=== PATIENT | female | born 1960 | race Caucasian/White ===

== ENCOUNTER 2017-01-17 11:13 | Inpatient (IN) | payer OTHER ==
[~2017-01-17] VITALS: Ht 162.5 cm; Wt 64.4 kg
--- NOTE | ~2017-01-17 | ST ---
[place], [place] EXERCISE STRESS TEST REPORT NAME: RAMIN WANG [facility] #: [id number] UNIT #: [id number] ROOM: 412 DOCTOR: JUSTIN HAMPTON,JENN BIRTHDATE: [birth year] DOS: 01/18/2017 EXERCISE TREADMILL STRESS REFERRING PHYSICIAN: Dr. Mcdaniel. INDICATION: Central chest pain and syncope. The patient underwent standard Jesús protocol stress EKG. The patient's baseline EKG showed sinus bradycardia with no ischemic changes. The patient had baseline heart rate of 49 with a blood pressure of 124/68. The patient's peak heart rate was 152 with a blood pressure of 158/90. The patient achieved a peak heart rate of 152, which represents 92% of maximum predicted. The patient exercised for 8 minutes and 30 seconds. The patient denied any chest pain or symptoms. The patient had no ischemic changes. The patient had no arrhythmias. SUMMARY OF FINDINGS: 1. Negative stress EKG to average workload. 2. Avila treadmill score of 8.3, portending a low risk prognosis. 3. Please see separate dictation for perfusion scan results. JENN ANDERSON MD CM:STRESS:EXERCISE STRESS TEST REPORT [id number] JENN ANDERSON MD
--- NOTE | ~2017-01-17 | WRIGHTHP ---
[place], [place] PATIENT HISTORY AND PHYSICAL EXAM NAME: RAMIN WANG [facility] #: [id number] UNIT #: [id number] ROOM: 412 DOCTOR: LAYA LÓPEZ MD BIRTHDATE: [birth year] DOS: 01/17/2017 HISTORY OF PRESENT ILLNESS: This patient is not known to me. The patient comes in with complaints of palpitations. The patient states that on Saturday, she had an episode of palpitations. Went to a hospital nearby where she worked in [place], [place]. She had an EKG and was told that everything was okay. She came to [place] yesterday to visit her daughter. On a drive here, she started having chest pain and palpitations, so decided to come into the Emergency Room. She denies having any chest pains right now, but she complains of significant headaches and also nausea. Denies having any abdominal pain, any fever or chills, does not have any cough. The patient states that she has had some stresses in her life recently, especially with work and has not been taking her thyroid medication regularly. PAST MEDICAL HISTORY: Significant for hypothyroidism. MEDICATIONS: Synthroid. SOCIAL HISTORY: Smokes about 5-6 cigarettes a day. Denies using any alcohol. She works in [place], [place]. PHYSICAL EXAMINATION: GENERAL: She is awake and alert and oriented. VITAL SIGNS: Graphic trend shows that she is afebrile, blood pressure 132/70, pulse of 86, respirations 14, afebrile. HEAD AND NECK: Within normal limits. LUNGS: Diminished breath sounds. No wheezes, rales or rhonchi heard. CARDIOVASCULAR: Heart is regular. ABDOMEN: Soft, nontender. EXTREMITIES: Without any edema. LABORATORY DATA: An EKG showed sinus rhythm, nonspecific ST-T wave changes, monitor shows sinus rhythm, rule out myocardial infarction protocol. So far have come back negative. ASSESSMENT AND PLAN: 1. The patient presents with chest pain, some minimal shortness of breath and palpitations and workup in the ER, which is negative, ruled out myocardial infarction protocol ordered. So far, all the enzymes have come back negative. Consultation with Cardiology has been obtained and the patient is scheduled to have a stress test this morning along with an echocardiogram. Aspirin will be continued. 2. Headaches, most likely from the nitroglycerin that she is on. We will discontinue the nitroglycerin paste and one dose of Toradol was given for the headache as well as the Zofran. 3. Hypothyroidism. The patient has been skipping medications lately, which could explain her palpitations. TSH, T3, T4 was ordered today. [place], [place] PATIENT HISTORY AND PHYSICAL EXAM NAME: RAMIN WANG UNIT #: [id number] ROOM: [facility] DOCTOR: LAYA LÓPEZ MD BIRTHDATE: [birth year] LAYA LÓPEZ MD CM:HISPHYS:PATIENT HISTORY AND PHYSICAL EXAMINATION [id number] LAYA LÓPEZ MD 01/18/17917 interface
[~2017-01-17 11:13] MED LIST: CIPRO500 MG; FLEXERIL10 MG PO; MOTRIN400 MG PO; MOTRIN800 MG PO; PERCOCET 325 MG1 TA7 PO; PREDNICOT10 MG; PROTONIX40 M1; PROTONIX40 MG; SYNTHROID0.075 MG PO; ZANTAC150 MG PO; ZOFRAN4 MG PO
[2017-01-17] MEDS ORDERED: SYNTHROID,LEV112 MCG PO (11:35)
[2017-01-17 11:48] LABS: BASO % 0.2 % (0.0-1.0); EOS % 0.1 % (1.0-4.0); HEMATOCRIT 42.5 % (37.0-47.0); HEMOGLOBIN 14.2 g/dl (12.0-16.0); LYMPH # 1.5 10*3/uL (1.3-4.4); LYMPH % 17.8 % (27.0-41.0); MEAN CELL VOLUME 90.4 fl (81.0-99.0); MEAN CORPUSCULAR HGB 30.2 pg (27.0-31.0); MEAN CORPUSCULAR HGB CONC 33.4 g/dl (33.0-37.0); MEAN PLATELET VOLUME 10.3 fl (9.6-12.3); MONO # 0.4 10*3/uL (0.1-1.0); MONO % 5.2 % (3.0-9.0); NEUT # 6.2 10*3/uL (2.3-7.9); NEUT % 76.5 % (47.0-73.0); PLATELET COUNT AUTOMATED 207 10*3/uL (130-400); RED CELL DISTRI WIDTH 12.8 % (0-14.5); WHITE BLOOD COUNT 8.1 10*3/uL (4.8-10.8)
[2017-01-17 12:08] LABS: BUN 17 mg/dl (7-24); CARBON DIOXIDE 21 mmol/L (21-32); CHLORIDE 110 mmol/L (98-107); EST GLOM FILT AFRICAN AMERICAN > 60 ml/min; GLUCOSE 88 mg/dL (65-99); POTASSIUM 3.5 mmol/L (3.5-5.1); SODIUM 143 mmol/L (136-145); TROPONIN I < 0.015 ng/ml (<0.045)
[2017-01-17 12:38] VITALS: BP 135/72
[2017-01-17 14:00] VITALS: BP 110/68
[2017-01-17 15:11] VITALS: BP 99/60
[2017-01-17 17:14] VITALS: BP 108/59
[2017-01-17 20:00] VITALS: BP 110/59
[2017-01-18] VITALS: BP 106/57
[2017-01-18 08:00] VITALS: BP 123/59
[2017-01-18 09:05] LABS: FREE T4 1.07 ng/dl (0.76-1.46)
[2017-01-18 09:10] LABS: THYROID STIM HORMONE (HS) 0.627 uIU/ml (0.358-4.75)
[2017-01-18 12:00] VITALS: BP 120/62
[2017-01-18 16:00] VITALS: BP 129/71
== END 2017-01-18 18:20 | disposition home or self-care (01) | DRG 312 ==
LOC: ED 11:13 → 4E 15:05 → EDHOLD 15:05 → 5E 16:01 → 4E 16:57
PROVIDERS: Emergency Medicine; Internal Medicine
DX: R55 Syncope and collapse (principal); E89.0 Postprocedural hypothyroidism; R00.2 Palpitations; R07.89 Other chest pain; F17.210 Nicotine dependence, cigarettes, uncomplicated; R51 Headache; R06.02 Shortness of breath; Z82.49 Family history of ischemic heart disease and other diseases of the circulatory system; Z83.3 Family history of diabetes mellitus; Z88.6 Allergy status to analgesic agent; Z79.899 Other long term (current) drug therapy

== ENCOUNTER 2022-12-10 08:27 | Emergency (ER) | payer BC ==
[~2022-12-10] VITALS: Ht 162.5 cm; Wt 61.2 kg
[~2022-12-10 08:27] MED LIST changes: +SYNTHROID,LEV112 MCG PO
== END 2022-12-10 11:04 | disposition home or self-care (01) ==
LOC: ED 08:27
DX: S96.911A Strain of unspecified muscle and tendon at ankle and foot level, right foot, initial encounter (principal); Z88.6 Allergy status to analgesic agent; Z88.5 Allergy status to narcotic agent; Z90.89 Acquired absence of other organs; Z98.890 Other specified postprocedural states; E16.2 Hypoglycemia, unspecified; W19.XXXA Unspecified fall, initial encounter; Y93.89 Activity, other specified; Y92.009 Unspecified place in unspecified non-institutional (private) residence as the place of occurrence of the external cause; Y99.8 Other external cause status

== ENCOUNTER → 2024-04-10 | Outpatient (CLI) | payer BC | END | disposition home or self-care (01) | LOC: CT 09:46 | PROVIDERS: ATTEND Nurse Practitioner | DX: G93.89 Other specified disorders of brain (principal); R55 Syncope and collapse ==

== ENCOUNTER 2024-05-28 09:50 | Emergency (ER) | payer BC ==
[~2024-05-28] VITALS: Ht 175.2 cm; Wt 64.0 kg
[2024-05-28] MEDS ORDERED: ASPIRIN ADULT L81 M2 PO (10:18)
[2024-05-28] MEDS ORDERED: ROSUVASTATIN CAL5 MG PO (10:19)
[2024-05-28] MEDS ORDERED: ESCITALOPRAM OX20 MG PO (10:19)
[2024-05-28] MEDS ORDERED: CYCLOBENZAPRINE10 MG PO (10:19)
[2024-05-28 10:44] LABS: BASO % 0.5 % (0.0-1.0); EOS % 0.5 % (1.0-4.0); HEMATOCRIT 44.3 % (37.0-47.0); LYMPH # 1.5 10*3/uL (1.3-4.4); LYMPH % 25.5 % (27.0-41.0); MEAN CELL VOLUME 90.8 fl (81.0-99.0); MEAN CORPUSCULAR HGB 30.3 pg (27.0-31.0); MEAN CORPUSCULAR HGB CONC 33.4 g/dl (33.0-37.0); MEAN PLATELET VOLUME 10.1 fl (9.6-12.3); MONO # 0.4 10*3/uL (0.1-1.0); MONO % 6.6 % (3.0-9.0); NEUT # 3.9 10*3/uL (2.3-7.9); NEUT % 66.6 % (47.0-73.0); PLATELET COUNT AUTOMATED 250 10*3/uL (130-400); RED BLOOD COUNT 4.88 10*6/uL (4.10-5.10); RED CELL DISTRI WIDTH 12.8 % (0-14.5); WHITE BLOOD COUNT 5.9 10*3/uL (4.8-10.8)
[2024-05-28] MEDS ORDERED: Ketorolac Tromethamine 30 MG/ML VIAL IV ONE (10:55)
[2024-05-28 11:11] LABS: ALKALINE PHOSPHATASE 53 U/L (46-116); BUN 18 mg/dl (9-23); CHLORIDE 109 mmol/L (98-107); CPK 52 U/L (34-171); LIPASE 41 U/L (12-53); POTASSIUM 3.7 mmol/L (3.4-5.1); SGPT/ALT 8 U/L (5-49); TOTAL PROTEIN 7.1 gm/dL (6.0-8.0)
[2024-05-28 11:21] LABS: ACT PARTIAL THROMBO TIME 35.9 SECONDS (20.0-32.1)
[2024-05-28 11:43] LABS: BILIRUBIN Negative (Negative); BLOOD Negative (Negative); CLARITY Clear (Clear); COLOR Yellow (Yellow); GLUCOSE Negative (Negative); KETONE Negative (Negative); LEUKO ESTERASE Trace (Negative); NITRITE Positive (Negative); PH 5.5 (4.5-8.0); SPECIFIC GRAVITY 1.015 (1.001-1.030); UROBILINOGEN 0.2 E.U./dl (0.0-1.0)
[2024-05-28 11:55] LABS: BACTERIA 4+
[2024-05-28] MEDS ORDERED: CEPHALEXIN 500 MG CAP PO ONE (12:05)
[2024-05-28] MEDS ORDERED: CEPHALEXIN500 M1 PO (12:21)
[2024-05-28] MEDS ORDERED: PREDNISONE20 M1 PO (12:21)
== END 2024-05-28 12:19 | disposition home or self-care (01) ==
LOC: ED 09:50
PROVIDERS: Emergency Medicine
DX: R07.89 Other chest pain (principal); N39.0 Urinary tract infection, site not specified; F17.200 Nicotine dependence, unspecified, uncomplicated; Z88.8 Allergy status to other drugs, medicaments and biological substances; Z98.890 Other specified postprocedural states